=== PATIENT | male | born 1990 | race Caucasian/White ===

== ENCOUNTER 2025-04-30 11:04 | Outpatient (OUT) | payer BC, SELFPAY ==
[2025-04-30 12:43] LABS: Alanine Aminotransferase 123 U/L (16-63); Albumin Globulin Ratio 1.2; Albumin Level 4.1 g/dL (3.4-5.0); Alkaline Phosphatase 67 U/L (46-116); Anion Gap 8.6; Aspartate Amino Transferase 57 U/L (15-37); Blood Urea Nitrogen 13.0 mg/dL (7.0-18.0); Calcium 9.6 mg/dL (8.5-10.1); Carbon Dioxide 33.2 mmol/L (21.0-32.0); Chloride 104 mmol/L (98-107); Cholesterol 236 mg/dL (<=200); Estimated GFR (African America >60 (>=60 mL/min/1.73m^2); Estimated GFR (Non-African Ame >60 (>=60 mL/min/1.73m^2); Globulin 3.4 g/dL; Glucose 100 mg/dL (74-106); HDL Cholesterol 41 mg/dL (40-60); Potassium 3.8 mmol/L (3.5-5.1); Sodium 142 mmol/L (136-145); Total Protein 7.5 g/dL (6.4-8.2); Triglycerides 207 mg/dL (<=150); VLDL CHOLESTEROL 41.4 mg/dL
== END 2025-04-30 11:05 | disposition home or self-care (01) ==
LOC: LAB 11:11
DX: E78.2 Mixed hyperlipidemia (principal)
CPT/HCPCS: 36415; 80048; 80061; 80076

== ENCOUNTER 2025-05-31 10:14 | Outpatient (OUT) | payer BC, SELFPAY ==
--- OUTSIDE RECORDS SUMMARY | 2025-05-31 10:21 | XMS_ITS | Clinical Summary ---
Author Organization [facility] Address [address] [place] [address] Care Team Providers Care Non Ferrous Material Handler Name Role Phone David Romero MD Primary Care Provider [phone] Allergies No known active allergies Medications MedicationSigDispense QuantityRefillsLast FilledStart DateEnd DateStatus escitalopram (Lexapro) 20 MG tablet Indications:Generalized anxiety disorderTake 1 tablet by mouth daily. 90 tablet 5Active Lisinopril 20 MG tablet Indications:Essential hypertensionTake 1 tablet by mouth daily. 30 tablet 5Active Lisinopril 10 MG tablet Indications:Essential hypertensionTake 1 tablet by mouth daily. 30 tablet Discontinued(Reorder) Active Problems ProblemNoted DateDiagnosed DateExposure to body fluid due to accidental needlestick ifxafy9201/08/2019Obesity: body mass index of 30.0-34.908 Encounters DateTypeDepartmentCare UemzNaqrzgrqjss38/24/2025 8:00 AM ESTOffice Visit [address] [phone] Sheila Mari PA-C Elevated liver enzymes (Primary Dx); Essential vzkqwiamqdid03/18/2025Telephone [address] [phone] Sheila Mari PA-C Condition Dnnulw2104/30/2025Telephone [address] [phone] Mee Zarate MA Xqvabjw8004/22/2025 8:00 AM ESTOffice Visit [place] [id number] [place] [phone] Sheila Mari PA-C Screening for cardiovascular condition (Primary Dx); Generalized anxiety disorder; Screening for prostate cancerfrom Last 3 Months Immunizations ImmunizationAdministration DatesNext [id number] COVID-19 monovalent vaccine (Moderna), 12yr+, 100mcg/0.5mL04/22/2021,07/23/2020,06/25/2020Hepatitis B Vaccine PEDS/ADOLES (ENGERIX-B / RECOMBIVAX HB10/12/2001Influenza, injectable, quadrivalent, preservative free03/30/2021MMR Yebreel3910/12/2001 Family History Medical HistoryRelationNameCommentsHeart Disease - OtherFatherLung Cancer Paternal GrandmotherRelationNameStatusCommentsFatherPaternal Grandmother Social History Tobacco UseTypesPacks/DayYears UsedDateSmoking Tobacco: NeverSmokeless Tobacco: Never Tobacco Cessation:Counseling Given: Not Answered Alcohol UseStandard Drinks/WeekCommentsYes0 (1 standard drink = 0.6 oz pure alcohol)socialDepressionAnswerDate RecordedPHQ-9 Total Score (Interpretation of Total Score 1-4 = Minimal depression; 5-9 = Mild depression; 10-14 = Moderate depression; 15-19 = Moderately severe depression)Sex and Gender InformationValueDate RecordedSex Assigned at BirthNot on fileLegal SexMale 01/24/2017 2:53 PM EDTGender BmmgubabJdzl85/14/2017 2:55 PM EDTSexual LwvdvusvhkkYwzlzgwa86/14/2023 2:27 PM EDT Last Filed Vital Signs Vital SignReadingTime TakenCommentsBlood Jngrdpjh568/3253905/06/2025 8:07 AM EST Zqond109205/06/2025 8:07 AM APNGxfebqtnbbs36.2 ??C (100.8 ??F)10/04/2022 10:56 AM EDTRespiratory Oapg317608/04/2021 2:13 PM ESTOxygen Pxpijzxaop24%05/06/2025 8:07 AM ESTInhaled Oxygen Concentration--Dssjtg810.6 kg (292 lb 6.4 oz)05/06/2025 8:07 AM DSVDgjpdk696 cm (6' 2 )04/22/2025 8:08 AM ESTBody Mass Index37.54 04/22/2025 8:08 AM EST Plan of Treatment Health MaintenanceDue DateLast DoneCommentsHEP B VACCINE (2 of 3 - 3-dose series)/07/2001TDAP (ADULT)2008HPV VACCINE (1 - 3-dose SCDM series)2016COVID-19 VACCINE (2024- season)/03/2021, 07/23/2020, 06/25/2020INFLUENZA VACCINE (#1)/, 03/22/2022, 03/30/20211174ECHBTKU25/06/203204/11/2021HEPATITIS C VIRUS SCREENINGCompleted 01/08/2019HIV SCREENING NGZSXZVSSJVjonzrdpg06/29/2019PNEUMOCOCCAL VACCINE SERIES Aged OutNo longer eligible based on patient's age to complete this topic Procedures Procedure NamePriorityDate/TimeAssociated DiagnosisCommentsLABS (OUTSIDE)Routine 04/30/2025 1:12 PM ESTHIV 1 AND 2 ODZTQMBADGZuwponp37/29/2019 10:19 AM EDT STD exposure HEPATITIS A, B, APwvrupd40/29/2019 10:19 AM EDT STD exposure from Last 3 Months or Most Recently Relevant to Health Maintenance Results * LABS (OUTSIDE) (04/30/2025 1:12 PM EST) Narrative Authorizing ProviderResult TypeResult StatusHistorical ProviderLAB SEND OUTS Final Result * (ABNORMAL) HEPATITIS A, B, C (01/08/2019 10:19 AM EDT)ComponentValueRef Range Test MethodAnalysis TimePerformed AtPathologist SignatureHep A AB (IGG + IGM) NEGATIVENEGATIVEBUCYEAST [facility]PO[facility] [address] - BUCYRUSHep B Surf AGNEGATIVENEGATIVEPREMIER [facility] - [address] - BUCYRUSHepatitis B Core Total AbNEGATIVENEGATIVE [facility] - [address] - BUCYRUSHep B Surf ABNEGATIVE(A)POSITIVEPREMIER [facility]ALTH [facility] - [address] - BUCYRUSComment: Clinical Interpretation of Immune Status ? Negative: ? patient is considered to be not immune to infection with HBV ? Intermediate: ?unable to determine if anti-HBs is present at levels consistent with immunity ? Positive: ? anti-HBs detected, patient is considered to be immune to infection with HBV HEP C AB, DonorNEGATIVENEGLAKEHEALTH BEACHWO[facility] - [address] - BUCYRUSSpecimen (Source)Anatomical Location / LateralityCollection Method / VolumeCollection TimeReceived Time01/08/2019 10:19 AM EDT01/08/2019 10:20 AM EDT Narrative Authorizing ProviderResult TypeResult StatusAdam Sumi Romero MDIMMUNOLOGY ORDERABLES Final ResultPerforming OrganizationAddressCity/State/ZIP CodePhone Number [facility] - [address] - [place] [address] [place] [address] * HIV 1 AND 2 ANTIBODIES (01/08/2019 10:19 AM EDT)ComponentValueRef RangeTest MethodAnalysis TimePerformed AtPathologist SignatureHIV-1/HIV-2 ANTIBODY NONREACTIVENONREACTIVEGLENS FALLS HOSPITAL - [address] [place] [address] Specimen (Source)Anatomical Location / LateralityCollection Method / Volume Collection TimeReceived XuhkHxoxh64/29/2019 10:19 AM EDT01/08/2019 10:20 AM EDT Narrative Authorizing ProviderResult TypeResult StatusAdam Sumi Romero MDIMMUNOLOGY ORDERABLES Final ResultPerforming OrganizationAddressCity/State/ZIP CodePhone Number [facility] - [address] [facility] [address] [place] [address] from Last 3 Months or Most Recently Relevant to Health Maintenance Insurance * Guarantor: Linda Bloom TypeRelation to PatientDate of BirthPhone Billing AddressPersonal/UabtsmLeim34/27/1991 [facility] [place] [address] Care Teams Team MemberRelationshipSpecialtyStart DateEnd Date David Romero MD PCP - GeneralFamily Medicine02/02/17
[2025-05-31 11:12] LABS: Alanine Aminotransferase 95 U/L (16-63); Albumin Globulin Ratio 1.2; Albumin Level 3.8 g/dL (3.4-5.0); Alkaline Phosphatase 61 U/L (46-116); Aspartate Amino Transferase 30 U/L (15-37); Globulin 3.3 g/dL; Total Protein 7.1 g/dL (6.4-8.2)
== END 2025-05-31 10:15 | disposition home or self-care (01) ==
LOC: LAB 10:17
DX: Z12.5 Encounter for screening for malignant neoplasm of prostate (principal); R74.8 Abnormal levels of other serum enzymes
CPT/HCPCS: 36415; 80076; G0103